=== PATIENT | female | born 1940 | race Caucasian/White ===

== ENCOUNTER 2020-06-18 18:52 | Observation (INO) | payer MEDICARE, BC ==
[~2020-06-18] VITALS: Ht 147.3 cm; Wt 69.1 kg
[~2020-06-18 18:52] MED LIST: BASAGLAR K100 UNIT/1 SQ; FREESTYLE PREC1 EAC5 MC; GLUCOPHAGE500 MG/TAB PO; GLUCOSE TEST ST1 DEV MC; LANCETS MC; OMNICEF 300MG300 MG PO; SYNTHROID0.075 MG/T PO
[2020-06-18 19:31] LABS: BASO % 0.4 % (0.0-2.0); EOS # 0.1 (0.0-0.7); EOS % 0.7 % (0-4.0); GRAN # 5.9 (1.4-6.5); GRAN % 72.2 % (42.2-75.2); HEMATOCRIT 40.7 % (37.0-47.0); HEMOGLOBIN 13.4 g/dl (12.5-16.0); LYMPH # 1.2 (1.2-3.4); LYMPH % 14.5 % (20.0-51.0); MEAN CELL VOLUME 93 fl (80.0-100.0); MEAN CORPUSCULAR HEMOGLOBIN 31 pg (27.0-31.0); MEAN CORPUSCULAR HGB CONC 33 g/dl (33.0-37.0); MEAN PLATELET VOLUME 9.8 fl (7.4-10.4); PLATELET COUNT 144 K/mm3 (130-400); RED BLOOD COUNT 4.36 M/mm3 (4.10-5.30); REDCELL DISTRIBUTION WIDTH-CV 14.5 % (11.5-14.5)
[2020-06-18 19:56] LABS: COLLECTION METHOD CATHETER
[2020-06-18 20:05] LABS: MUCOUS Present /lpf; PH 5 (5-8); SQUAMOUS EPITHELIAL 0-2 /hpf; URINE APPEARANCE Hazy; URINE BACTERIA Occasional /hpf; URINE BILIRUBIN Negative (NEGATIVE); URINE BLOOD 2+ (NEGATIVE); URINE COLOR Amber; URINE GLUCOSE 2+ (NEGATIVE); URINE KETONE 1+ (NEGATIVE); URINE LEUKOCYTE ESTERASE Negative (NEGATIVE); URINE NITRATE Negative (NEGATIVE); URINE PROTEIN(semi-quant) 1+ (NEGATIVE); URINE RBC 0-2 /hpf; URINE UROBILINOGEN >=4.0 mg/dL (NEGATIVE)
[2020-06-18 20:08] LABS: TROPONIN-I 0.018 ng/mL (0.000-0.035)
[2020-06-18 20:19] LABS: ALBUMIN 3.8 gm/dL (3.5-5.0); BILIRUBIN,TOTAL 2.3 mg/dL (0.0-1.0); C-REACTIVE PROTEIN 3.2 mg/dL (0.0-0.9); CALCIUM 9.3 mg/dL (8.4-10.2); CREATININE, serum 0.95 (0.52-1.25); POTASSIUM 4.4 mmol/L (3.4-5.0); TOTAL PROTEIN 7.3 gm/dL (6.4-8.2)
[2020-06-18] MEDS ORDERED: GLUCOPHAGE500 MG/TAB PO (21:39)
[2020-06-18] MEDS ORDERED: MULTI-VITAMIN W1 TA1 PO (21:40)
[2020-06-18] MEDS ORDERED: PRINIVIL5 MG PO (21:40)
[2020-06-18] MEDS ORDERED: NIZORAL CREAM15 GM TP (21:42)
[2020-06-18] MEDS ORDERED: LANTUS SOLOS100 U/ML SQ (21:42)
--- NOTE | 2020-06-18 22:13 | NUR ---
Pt arrives to room 327 from ED per cart. Is alert and oriented x4. Moved from cart to bed with 2 assist. Has IVF infusing to left hand without redness or swelling.
[2020-06-18 22:20] VITALS: BP 122/52; PULSE 89; TEMP 97.3
[2020-06-18] MEDS ORDERED: BASAGLAR K100 UNIT/1 SQ (23:02)
[2020-06-19] VITALS (7 sets, daily range): BP systolic 94–135; BP diastolic 41–55; PULSE 72–87; TEMP 97.2–98.8
--- NOTE | 2020-06-19 00:30 | NUR ---
Pt ate a turkey sandwich and applesauce without problem.
--- NOTE | 2020-06-19 05:00 | NUR ---
Incontinent of large soft BM and urine. Andria care provided and barrier cream applied. Encouraged to lay on her sides.
--- NOTE | 2020-06-19 07:10 | NUR ---
PT RESTING IN BED. DR. ANDERS IN TO SEE PT THIS AM. DRESSING TO LEFT KNEE CDI. PT EATING AND DRINKING WITHOUT N/V.
--- NOTE | 2020-06-19 07:13 | NUR ---
PT RESTING IN BED EATING BREAKFAST. PT'S SISTER CALLED AND UPDATED ON PT CONDITION.
[2020-06-19 07:26] LABS: BASO % 0.3 % (0.0-2.0); EOS # 0.2 (0.0-0.7); EOS % 2.5 % (0-4.0); GRAN # 4.9 (1.4-6.5); GRAN % 69.5 % (42.2-75.2); HEMOGLOBIN 11.8 g/dl (12.5-16.0); LYMPH # 1.2 (1.2-3.4); LYMPH % 17.1 % (20.0-51.0); MEAN CELL VOLUME 93 fl (80.0-100.0); MEAN CORPUSCULAR HEMOGLOBIN 31 pg (27.0-31.0); MEAN CORPUSCULAR HGB CONC 33 g/dl (33.0-37.0); MEAN PLATELET VOLUME 9.9 fl (7.4-10.4); MONO # 0.7 (0.1-0.6); MONO % 10.5 % (1.7-9.3); PLATELET COUNT 124 K/mm3 (130-400); RED BLOOD COUNT 3.83 M/mm3 (4.10-5.30); REDCELL DISTRIBUTION WIDTH-CV 14.6 % (11.5-14.5)
[2020-06-19 07:28] LABS: HEMATOCRIT 35.7 % (37.0-47.0)
[2020-06-19 07:33] LABS: CALCIUM 8.3 mg/dL (8.4-10.2); CREATININE, serum 0.71 (0.52-1.25); POTASSIUM 3.9 mmol/L (3.4-5.0)
--- NOTE | 2020-06-19 09:49 | NUR ---
PT A/O X3, PATIENT VISITED WITH DR. SINGH THIS AM. PT WAS DOWN FOR 9 DAYS AT HOME BEFORE FAMILY FOUND HER. AWAITNG PLACEMENT SCREENINGS.
--- NOTE | 2020-06-19 10:49 | NUR ---
Initial visit; Patient thanked Winding Rack Operator for taking time to listen to her and offer spiritual care, especially prayer.
--- NOTE | 2020-06-19 12:14 | NUR ---
PT UP TO BR WITH ASSIST X2 SLOW SHUFFELING GAIT. LOOSE STOOL PROVIDED PERICARE AND THEN RETURNED TO BED. PT'S SISTER HERE TO VISIT AND GREIGE GOODS EXAMINER IN ROOM TO ASSIST WITH DISCHARGE PLANNING. PT HAS MANY SCRAPES AND CONTUSIONS TO BACK AND LEGS AND ARMS FROM CRAWLING ON FLOOR FOR NINE DAYS.
--- NOTE | 2020-06-19 16:27 | NUR ---
Sound Assistant met with the patient and the patient's sister, Anna. The patient lives alone in [place]. The patient has a walker, cane and electric wheelchair, and two scooter. The patient's PCP is Dr. Scanlon and patient receives medications from [facility]. The patient picks up medications. The patient has DPOA-HC and it was turned in at admissions. It designates her sister, Anna. The patient had a fall and was left alone for 9 days with only two bottles of water near her. The patient was agreeable to sending referrals to [place] [facility], [facility], [facility], [place] [facility] and [facility]. The patient is obs and will be have to be private pay. She states she will pay if she has to but would like to discuss it with family. ARTURO contacted [facility], , and [facility] and their daily rates for private rooms are, $373, $298, and $260, respectively. SW informed the patient of these rates. [facility] has declined. ARTURO attempted to contact the patient's sister Anna with updates, left message.
--- NOTE | 2020-06-20 01:00 | NUR ---
Assisted to bathroom with walker and gait belt. Had already been incontinent of urine, depends changed and jony care given at this time. Applied barrier cream to back and jony area. Back to bed with slow steady gait. IVF infusing to left hand without redness or swelling.
[2020-06-20 03:26] VITALS: BP 112/45; PULSE 72; TEMP 98.1
--- NOTE | 2020-06-20 06:00 | NUR ---
ASSISTED TO BATHROOM WITH GAIT BELT, WALKER AND ONE ASSIST. SLOW STEADY GAIT. APPLIED BARRIER CREAM TO UPPER BACK AND COCCYX INJURY. PT INCONTINENT OF BLADDER AND VOIDS. BARRIER CREAM TO LOTTIE AREA AND NEW DEPENDS ON. BACK TO BED. IVF CONTINUE TO LEFT HAND, NO REDNESS OR SWELLING.
[2020-06-20 07:37] VITALS: BP 134/50; PULSE 75; TEMP 98.4
--- NOTE | 2020-06-20 08:00 | NUR ---
Patient in bed eating breakfast. Alert and oriented x3. Assessment complete. Denies pain at this time. Abrasions to elbows with mepilex in place, left hip ulcer, abrasion to left shoulder and mid back noted. deep tissue injury to sacrum. Multiple abrasions noted throughout. denies pain a this time. denies further neeeds at this time.
--- NOTE | 2020-06-20 09:22 | NUR ---
Bee Farmer attempted to contact the patient's sister, Anna to discuss the options for the patient, left message. SW attempted to contact the patient's brother, Yousif, left message. SW met with the patient and she states her siblings were discussing the possibility of returning home with a caregiver and [facility]. Laly from [facility] reports they are awaiting on Dr. Scanlon in order to make a decision. [facility] reports they are still reviewing the referral. Will continue to monitor.
--- NOTE | 2020-06-20 10:03 | NUR ---
Oil And Gas Specialist attempted to contact the patient's sister Anna, left message.
[2020-06-20 11:22] VITALS: BP 132/60; PULSE 84; TEMP 97.4
--- NOTE | 2020-06-20 11:52 | NUR ---
Family at bedside.
--- NOTE | 2020-06-20 12:11 | NUR ---
Patient sitting up in recliner, Denies pain or further needs at this time.
[2020-06-20] MEDS ORDERED: NOVLOG SQ (13:40)
[2020-06-20] MEDS ORDERED: LEVEMIR FLEX100 U/ML SQ (13:40)
[2020-06-20 13:48] VITALS: BP 132/60; PULSE 84; TEMP 97.4
--- NOTE | 2020-06-20 13:55 | NUR ---
The patient is to discharge today, 06/20 to [facility] for a skilled stay. The patient will be transported at 1430. The team, the patient and the patient's sister, Anna were in agreeance. SW faxed discharge orders. There are no additional needs at this time.
--- NOTE | 2020-06-20 14:30 | NUR ---
Report called to Merari STOKES at [facility]
--- NOTE | 2020-06-20 14:38 | NUR ---
Assisted patient up to restroom, incontinent of urine. Pericare provided. Stand by assist to transfer to wheelchair with walker, steady gait. Continues to deny pain. Patient transfered to [facility] by wheelchair.
== END 2020-06-20 14:38 ==
LOC: COL.ER 18:52 → JCC 21:13
PROVIDERS: Emergency Medicine; Nurse Practitioner Family; ADMIT Hospitalist
DX: R53.1 Weakness (principal); R53.81 Other malaise; L89.212 Pressure ulcer of right hip, stage 2; L89.156 Pressure-induced deep tissue damage of sacral region; N17.9 Acute kidney failure, unspecified; E86.0 Dehydration; E87.2 Acidosis; E11.8 Type 2 diabetes mellitus with unspecified complications; E03.9 Hypothyroidism, unspecified; Z20.828 Contact with and (suspected) exposure to other viral communicable diseases; S50.312A Abrasion of left elbow, initial encounter; S50.311A Abrasion of right elbow, initial encounter; S80.812A Abrasion, left lower leg, initial encounter; S80.811A Abrasion, right lower leg, initial encounter; M47.892 Other spondylosis, cervical region; W18.30XA Fall on same level, unspecified, initial encounter; W22.8XXA Striking against or struck by other objects, initial encounter; Z79.4 Long term (current) use of insulin; Y92.009 Unspecified place in unspecified non-institutional (private) residence as the place of occurrence of the external cause; Z79.899 Other long term (current) drug therapy
CPT/HCPCS: G0378; J1650; J1815; J7030

== ENCOUNTER 2020-12-24 10:29 | Emergency (ER) | payer MEDICARE, BC ==
[~2020-12-24] VITALS: Ht 144.8 cm; Wt 72.7 kg
[~2020-12-24 10:29] MED LIST changes: +LANTUS SOLOS100 U/ML SQ; +LEVEMIR FLEX100 U/ML SQ; +MULTI-VITAMIN W1 TA1 PO; +NIZORAL CREAM15 GM TP; +NOVLOG SQ; +PRINIVIL5 MG PO
[2020-12-24 10:43] VITALS: TEMP 97.6
[2020-12-24 12:07] VITALS: BP 164/71; PULSE 106
== END 2020-12-24 12:45 | disposition home or self-care (01) ==
LOC: COL.ER 10:29
DX: S01.01XA Laceration without foreign body of scalp, initial encounter (principal); E11.9 Type 2 diabetes mellitus without complications; I10 Essential (primary) hypertension; E03.9 Hypothyroidism, unspecified; Z79.4 Long term (current) use of insulin; Z79.890 Hormone replacement therapy; W19.XXXA Unspecified fall, initial encounter; Y92.009 Unspecified place in unspecified non-institutional (private) residence as the place of occurrence of the external cause

== ENCOUNTER 2021-03-26 15:48 | Observation (INO) | payer MEDICARE, BC ==
[~2021-03-26] VITALS: Ht 144.8 cm; Wt 74.0 kg
[2021-03-26] MEDS ORDERED: LASIX 40MG TABL40 MG PO (16:04)
[2021-03-26] MEDS ORDERED: KLOR-CON M2020 MEQ PO (16:04)
[2021-03-26] MEDS ORDERED: PROTONIX 40MG T40 MG PO (16:05)
[2021-03-26] MEDS ORDERED: LEVEMIR FLEX100 U/ML SQ (16:08)
[2021-03-26] MEDS ORDERED: NIZORAL SHAMPO120 M1 TP (16:08)
[2021-03-26] MEDS ORDERED: NYSTATIN POWDER30 GM TOP (16:09)
[2021-03-26] MEDS ORDERED: VITAMINC1000TA PO (16:10)
[2021-03-26] MEDS ORDERED: FERROUS GL325 MG/TAB PO (16:23)
--- NOTE | 2021-03-26 17:14 | NUR ---
PT ADMITTED TO ROOM 348, ASSESSMENTS COMPLETE, MED REC COMPLETE. DR. DAVENPORT CONTACTED FOR BOWEL PREP ORDERS AND SURGICAL ORDERS. COVID SCREEN COMPLETE WITH NEG RESULTS.
[2021-03-26 17:44] VITALS: BP 132/53; PULSE 79; TEMP 97.6
--- NOTE | 2021-03-26 18:29 | NUR ---
CONSENT OBTAINED AND PLACED ON CHART.
--- NOTE | 2021-03-26 19:30 | NUR ---
Patient is starting bowel prep at this time.
[2021-03-26 19:45] VITALS: BP 118/47; PULSE 78; TEMP 97.5
[2021-03-26 23:38] VITALS: BP 113/48; PULSE 76; TEMP 97.5
[2021-03-27] VITALS (8 sets, daily range): BP systolic 113–134; BP diastolic 46–55; PULSE 74–86; TEMP 97.5–98
--- NOTE | 2021-03-27 04:00 | NUR ---
Patient finished bowel prep. Has had several loose stools.
--- NOTE | 2021-03-27 09:43 | NUR ---
PT TO SURGERY @909.
--- NOTE | 2021-03-27 09:46 | NUR ---
PT SUCCESSFUL IN BOWEL PREP. PT TO SURGERY PER ORDERS. PT'S SISTER AT BEDSIDE. VERBAL CONSENT OBTAINED.
--- NOTE | 2021-03-27 10:34 | NUR ---
PT TO ROOM @1005 WITH REPORT FROM [facility] STOKES ENDO. PT IS A/O X3, LUNGS CTA, BOWEL SOUNDS HYPO. 2 + EDEMA BLE. IN TO SEE PT AND COORDINATE FUTHER TX.PT TO HAVE CT AND THEN POSSIBLE DC TO FOLLOW UP OUTPATIENT WITH GENERAL SURGERY.
[2021-03-27 13:15] LABS: CREATININE, serum 0.54 (0.52-1.25)
--- NOTE | 2021-03-27 13:27 | NUR ---
Initial visit; Patient sleeping, Intake Specialist let family member know of the availability of Spiritual Care.
--- NOTE | 2021-03-27 15:57 | NUR ---
ARTURO met with the patient and her sister, Bella (ph#[phone]), to discuss discharge plan. The patient lives alone in [place]. Bella lives in [place]. The patient's brother, Dean, lives in [place]. The patient reports independence with ADLs and has several walkers and an electric wheelchair. She states that she needs to replace the battery in the wheelchair. The patient's PCP is Dr. Erin Scanlon and she receives her medications from [facility] in [facility]. She reports no difficulties obtaining her meds. Bella provided ARTURO with a copy of the patient's DPOA-HC and General DPOA. ARTURO placed the copies in the patient's chart. The patient's DPOA-HC is Bella. The patient plans to return home upon discharge. Bella reports that she plans to stay with the patient for awhile. ARTURO discussed home health services and it's benefits. The patient was not interested in home health at this time. No additional needs at this time.
--- NOTE | 2021-03-27 16:12 | NUR ---
DISCHARGE INSTRUCTIONS REVIEWED WITH PATIENT AND FAMILY. QUESTIONS SOLICITED AND ANSWERED. PT LEFT WITH STAFF PER WHEEL CHAIR.
== END 2021-03-27 16:23 | disposition home or self-care (01) ==
LOC: SDCO 15:48 → SURG 16:27 → SDCO 03-27 09:00 → SURG 03-27 16:23
PROVIDERS: ADMIT Internal Medicine Gastroenterology
DX: K29.70 Gastritis, unspecified, without bleeding (principal); D50.9 Iron deficiency anemia, unspecified; R19.5 Other fecal abnormalities; E11.649 Type 2 diabetes mellitus with hypoglycemia without coma; E03.9 Hypothyroidism, unspecified; I11.9 Hypertensive heart disease without heart failure; I34.0 Nonrheumatic mitral (valve) insufficiency; R60.0 Localized edema; K44.9 Diaphragmatic hernia without obstruction or gangrene; Z20.822 Contact with and (suspected) exposure to COVID-19; Z79.899 Other long term (current) drug therapy; Z79.890 Hormone replacement therapy; Z79.4 Long term (current) use of insulin
CPT/HCPCS: G0378; J1815; J2704; J7030; Q9967

== ENCOUNTER 2021-04-10 15:16 | Inpatient (IN) | payer MEDICARE, BC ==
[~2021-04-10] VITALS: Ht 144.8 cm; Wt 74.5 kg
[~2021-04-10 15:16] MED LIST changes: +FERROUS GL325 MG/TAB PO; +KLOR-CON M2020 MEQ PO; +LASIX 40MG TABL40 MG PO; +NIZORAL SHAMPO120 M1 TP; +NYSTATIN POWDER30 GM TOP; +PROTONIX 40MG T40 MG PO; +VITAMINC1000TA PO
--- NOTE | 2021-04-28 13:58 | NUR ---
arrived on unit per WC from admissions
[2021-04-28 14:00] VITALS: BP 111/43; PULSE 74; TEMP 98.6
--- NOTE | 2021-04-28 14:05 | NUR ---
Dr Ascencio notified of patinet's arrival and need for orders
--- NOTE | 2021-04-28 14:33 | NUR ---
assessment completed, she is able to answer all questions but is very slow to answer, has bilateral lower leg edema that sister states she does have some trouble with, orders received from Dr Ascencio's office,
--- NOTE | 2021-04-28 15:30 | NUR ---
resting in bed, IV started right forearm, tolerated well
[2021-04-28 16:15] VITALS: BP 136/53; PULSE 72; TEMP 98.1
[2021-04-28] MEDS ORDERED: GLUCOPHAGE XR500 M1 PO (16:58)
--- NOTE | 2021-04-28 17:45 | NUR ---
in bed and miralax prep started, will encourage her to drink 8 ounces every 15 minutes
--- NOTE | 2021-04-28 18:25 | NUR ---
assisted up to bathroom with 1 assist and voided qs
[2021-04-28 18:53] VITALS: BP 120/50; PULSE 75; TEMP 97.4
--- NOTE | 2021-04-28 21:00 | NUR ---
PATIENT IS IN THE ROOM ON BOWEL PREP.NEEDS ASSISTANCE WITH TAKING THE BOWEL PREP.TAKES SMALL SIPS.NO OTHER NEEDS AT THIS TIME.
[2021-04-29] VITALS (13 sets, daily range): BP systolic 100–171; BP diastolic 37–76; PULSE 74–96; TEMP 97–98.4
--- NOTE | 2021-04-29 01:25 | NUR ---
PATIENT ASSISTED TO THE BEDSIDE COMMODE.HAS NOT HAD A BM SINCE THE BEGINNING OF THE SHIFT.SHE IS TWO ASSIST STAND AND PIVOT TO THE BEDSIDE COMMODE
--- NOTE | 2021-04-29 06:23 | NUR ---
PATIENT HAD 3 BOWEL MOVEMENTS IN A BEDPAN WAS HARD AND GREEN IN COLOR.IV ACCESS INFILTRATED TRIED STARTING A NEW ONE WITH NO SUCCESS SENIOR CONTROLS ENGINEER INFORMED TRIED WITH NO SUCESS.PATIENT DECLINES TO SIGN CONSENT SAYS HER SISTER IS COMING TO DIGN IT.FOR OR TODAY
--- NOTE | 2021-04-29 09:15 | NUR ---
NGT placed to right nare per Drs order. Immediate return of 500ml brown liquid. Miralax bowel prep per NGT.
--- NOTE | 2021-04-29 09:30 | NUR ---
Patient alert and oriented, answers questions appropriately. See assessment. Abdomen distended, firm. Bowel sounds hypoactive x4 quads. +Flatus. +Bowel movement. NGT in right nare to LIS, large amounts of brown liquid. Patient c/o nausea, despite NGT in place. No other c/o at this time.
[2021-04-29 11:13] LABS: HEMOGLOBIN 7.8 g/dl (12.5-16.0); MEAN CELL VOLUME 79 fl (80.0-100.0); MEAN CORPUSCULAR HEMOGLOBIN 24 pg (27.0-31.0); MEAN CORPUSCULAR HGB CONC 30 g/dl (33.0-37.0); MEAN PLATELET VOLUME 10.7 fl (7.4-10.4); PLATELET COUNT 142 K/mm3 (130-400); RED BLOOD COUNT 3.31 M/mm3 (4.10-5.30); REDCELL DISTRIBUTION WIDTH-CV 16.3 % (11.5-14.5)
[2021-04-29 11:20] LABS: INR 1.2 (0.8-3.0); PROTHROMBIN TIME 13.2 SECONDS (9.7-12.8)
[2021-04-29 11:23] LABS: ALBUMIN 3.2 gm/dL (3.5-5.0); BILIRUBIN,TOTAL 0.9 mg/dL (0.0-1.0); CALCIUM 7.8 mg/dL (8.4-10.2); CREATININE, serum 1.38 (0.52-1.25); POTASSIUM 4.3 mmol/L (3.4-5.0); TOTAL PROTEIN 6.5 gm/dL (6.4-8.2)
--- NOTE | 2021-04-29 11:40 | NUR ---
First visit from the city attorney. No needs right now.
--- NOTE | 2021-04-29 14:31 | NUR ---
Patient to surgery at this time. Blood transfusing, assume care of blood to post op staff.
--- NOTE | 2021-04-29 16:51 | NUR ---
The patient is down in a procedure. ARTURO met with the patient's sister, Bella Reed (ph#[phone]), and brother, Dean, to discuss discharge plan. The patient lives alone in [place]. Dean lives in [place] and Bella lives in [place]. Bella reports that the patient has been independent with ADLs and has canes, a walker, and an electric wheelchair. She does not have any home health services. The patient's PCP is Dr. Erin Scanlon and she receives her medications from [facility] in [facility]. The patient's DPOA-HC is in EMR and it designates Bella. Bella and Dean report that the patient has had a decline at home and they would like to the patient to go to a SNF upon discharge. They are unsure if the patient will be agreeable though. They state that the patient has falls at home, but does not use her life alert. The patient's siblings are open for ARTURO to send referrals to the local facilities. ARTURO contacted and faxed a referral to [facility], [facility], and [facility]. Awaiting screens. ARTURO to follow up with the patient tomorrow.
--- NOTE | 2021-04-29 18:41 | NUR ---
Patient returns from surgery at 1840. Patient responds to painful stimuli, pupils pinpoint and reactive to light. NGT in place to right nare to LIS. Jimenez catheter in place and draining clear ciara urine. Lap sites x2 to abdomen and midline incision with edges well approximated, no redness or drainage noted. No s/s pain or discomfort..
--- NOTE | 2021-04-29 20:15 | NUR ---
Pt. laying in bed with eyes closed, respirations equal and unlabored. Pt. arouses to verbal stimuli. Pt is A&OX3, assessment complete. PICC to rt. upper arm patent, IV fluids infusing per orders. Pt. denies pain or other needs, call light within reach.
[2021-04-30] VITALS: BP 110/46; PULSE 88; TEMP 97.8
[2021-04-30 04:00] VITALS: BP 113/44; PULSE 95; TEMP 98.1
[2021-04-30 07:06] LABS: BASO % 0.1 % (0.0-2.0); GRAN # 13.4 (1.4-6.5); GRAN % 88.5 % (42.2-75.2); LYMPH # 0.8 (1.2-3.4); LYMPH % 5.2 % (20.0-51.0); MEAN CELL VOLUME 79 fl (80.0-100.0); MEAN CORPUSCULAR HGB CONC 31 g/dl (33.0-37.0); MEAN PLATELET VOLUME 10.7 fl (7.4-10.4); MONO # 0.9 (0.1-0.6); MONO % 5.9 % (1.7-9.3); PLATELET COUNT 151 K/mm3 (130-400); RED BLOOD COUNT 3.44 M/mm3 (4.10-5.30); REDCELL DISTRIBUTION WIDTH-CV 16.2 % (11.5-14.5)
[2021-04-30 07:12] LABS: HEMATOCRIT 27.3 % (37.0-47.0); HEMOGLOBIN 8.5 g/dl (12.5-16.0); MEAN CORPUSCULAR HEMOGLOBIN 25 pg (27.0-31.0)
[2021-04-30 07:18] LABS: CALCIUM 7.6 mg/dL (8.4-10.2); CREATININE, serum 0.94 (0.52-1.25); MAGNESIUM 1.5 mg/dL (1.6-2.3); POTASSIUM 4.5 mmol/L (3.4-5.0)
[2021-04-30 07:33] VITALS: BP 114/45; PULSE 100; TEMP 97.7
--- NOTE | 2021-04-30 08:35 | NUR ---
Jaclyn Hospitalist SHERRIE notified of consult.
--- NOTE | 2021-04-30 11:10 | NUR ---
Patient alert and oriented, answers questions appropriately. See assessment. Abdomen soft, tender, non distended. Bowel sounds hypoactive x4 quads. No flatus. Midline and lap sites to abdomen with edges well approximated, no redness or drainage noted. Jimenez catheter in place, patent, draining clear yellow urine. SCDs in place. Post op exercises reviewed with patient. PICC line in place to RUE, flushed with NS, blood return noted. Jimenez cares completed. Post op exercises reviewed with patient. No c/o at this time.
[2021-04-30 11:39] VITALS: BP 112/48; PULSE 96; TEMP 98.6
--- NOTE | 2021-04-30 15:42 | NUR ---
Laly, at [facility], reports that they would want to see updates from after the surgery and inquired about any cancer treatment. The patient's sister, Bella, informed ARTURO that the patient is not receiving any cancer treatment at this time. SW informed Laly of this. PT worked with the patient and recommend SNF. They noted that the patient needed maximum assist. SW met with the patient, her brother (Dean), and another family member to discuss their recommendation. The patient states that she would need to speak to her sister, Sergio. SW contacted the patient's sister, Bella, and reviewed the above. Bella is in agreement to SNF upon discharge. ARTURO contacted and faxed updated to [facility], [facility], and [facility].
[2021-04-30 15:44] VITALS: BP 106/41; PULSE 89; TEMP 98.5
--- NOTE | 2021-04-30 18:48 | NUR ---
Discharge instructions reviewed with patient, verbalized understanding. Discharged via wheelchair to auto/home with spouse at 1845.
--- NOTE | 2021-04-30 19:27 | NUR ---
REPORT RECEIVES FROM KIKE LEY. PATIENT RESTING IN BED SLEEPING AROUSABLE. DENIES PAIN AT THIS TIME. RESPIRATIION UNLABED AND EVEN. MID ABDOMINAL DRESSING CLEAN DRY AND INTACT, TWO LAPS SITE COVER WITH BANDAGE. IVF LR@ 75ML/HR INFUSING VIA TRAY PICC. SEYMOUR CATHER TO GRAVITY DRAINING CLEAR YELLOW URINE. PATIENT TOLERATES CLEAR LIQUIDS DIET. WILL CONTINUE TO MONITOR.
[2021-04-30 20:05] VITALS: BP 97/40; PULSE 84; TEMP 98
[2021-05-01] VITALS (7 sets, daily range): BP systolic 94–122; BP diastolic 33–60; PULSE 57–90; TEMP 97.3–98.3
[2021-05-01 07:00] LABS: BASO % 0.2 % (0.0-2.0); EOS # 0.1 (0.0-0.7); EOS % 0.8 % (0-4.0); GRAN # 8.6 (1.4-6.5); GRAN % 71.5 % (42.2-75.2); LYMPH # 1.8 (1.2-3.4); LYMPH % 15.1 % (20.0-51.0); MEAN CELL VOLUME 81 fl (80.0-100.0); MEAN CORPUSCULAR HGB CONC 30 g/dl (33.0-37.0); MEAN PLATELET VOLUME 10.4 fl (7.4-10.4); MONO # 1.5 (0.1-0.6); MONO % 12.1 % (1.7-9.3); PLATELET COUNT 141 K/mm3 (130-400); RED BLOOD COUNT 2.93 M/mm3 (4.10-5.30); REDCELL DISTRIBUTION WIDTH-CV 16.6 % (11.5-14.5)
[2021-05-01 07:09] LABS: CALCIUM 7.7 mg/dL (8.4-10.2); CREATININE, serum 1.44 (0.52-1.25); POTASSIUM 4.2 mmol/L (3.4-5.0)
[2021-05-01 07:13] LABS: HEMATOCRIT 23.7 % (37.0-47.0); HEMOGLOBIN 7.2 g/dl (12.5-16.0); MEAN CORPUSCULAR HEMOGLOBIN 25 pg (27.0-31.0)
--- NOTE | 2021-05-01 10:29 | NUR ---
Initial visit; Patien with Physical Therapy, Career Development Coordinator left card informing patient of the availability of spiritual care at our hospital.
--- NOTE | 2021-05-01 11:19 | NUR ---
Patient alert and oriented, answers questions appropriately. See assessment. Abdomen soft, tender, non distended. Bowel sounds active x4 quads. +Flatus. +Bowel movement. Midline and lap sites to abdomen with edges well approximated, no redness or drainage noted. Jimenez catheter in place, patent and draining clear yellow urine. Dbl lumen PICC in place to RUE, flushes well, blood return noted. Post op exercises reviewed with patient. No c/o at this time.
--- NOTE | 2021-05-01 15:59 | NUR ---
ARTURO staffed with the hospitalist. The patient is to be here through the weekend. ARTURO contacted and faxed updates to [facility], [facility], and [facility]. ARTURO updated the patient's sister, Bella. Bella reports that if SW needs anything over the weekend to call her cell phone at [phone].
--- NOTE | 2021-05-01 17:11 | NUR ---
Jimenez catheter removed per Drs order.
--- NOTE | 2021-05-01 21:00 | NUR ---
Pt. laying in bed at this time. Pt. is A&OX3, but forgettful at times. PICC to rt. upper arm patent, IV fluids infusing per orders. Abd. incisions CDI. Pt. very teary eyed this evening. Pt. voices she was upset because her sister did not come to see her today. This nurse called sister for the pt. Pt. able to talk to sister this evening. This nurse also talked to sister. Sister voices that she was planning on come tuesday because a brother is planning on visiting tomorrow. Pt.'s sister also reported that the pt. may not have heard her on the phone. This nurse reinterated to the pt. what her sister said. Pt. also reported pain to lt. shoulder and arm. Gave pain meds per orders. Pt. denies further needs.
[2021-05-02] VITALS (7 sets, daily range): BP systolic 102–127; BP diastolic 42–57; PULSE 85–91; TEMP 97.5–98.4
[2021-05-02 07:28] LABS: BASO % 0.2 % (0.0-2.0); EOS # 0.2 (0.0-0.7); EOS % 1.5 % (0-4.0); GRAN % 76.8 % (42.2-75.2); LYMPH # 1.6 (1.2-3.4); LYMPH % 12.5 % (20.0-51.0); MEAN CELL VOLUME 82 fl (80.0-100.0); MEAN CORPUSCULAR HGB CONC 30 g/dl (33.0-37.0); MEAN PLATELET VOLUME 10.1 fl (7.4-10.4); MONO # 1.1 (0.1-0.6); MONO % 8.5 % (1.7-9.3); PLATELET COUNT 169 K/mm3 (130-400); RED BLOOD COUNT 3.21 M/mm3 (4.10-5.30); REDCELL DISTRIBUTION WIDTH-CV 16.8 % (11.5-14.5)
[2021-05-02 07:32] LABS: CALCIUM 7.7 mg/dL (8.4-10.2); CREATININE, serum 1.22 (0.52-1.25); POTASSIUM 4.2 mmol/L (3.4-5.0)
[2021-05-02 07:35] LABS: HEMATOCRIT 26.4 % (37.0-47.0); MEAN CORPUSCULAR HEMOGLOBIN 25 pg (27.0-31.0)
--- NOTE | 2021-05-02 12:00 | NUR ---
Patient is having some nausea this morning. She vomited after breakfast. Zofran given. She was also having pain, roxicodone given. Her brother arrived at about 0845, her breakfast arrived about the same time. He started to assist her with eating. He than came out to the desk and yelled about her breakfast sitting there for hours. Explained we ordered after 0800 and that it usually takes 40 minutes to get food from the kitchen. He continued to be upset. Another nurse stated the food arrived after he got to the room. Discussed taking over feeding the patient for him but he stated she was tired and he was going to wait to feed her more. When she got sick he stated she got sick from eating old food that sat out too long and was upset because I would not grab the bucket with the vomit from him without gloves. He than stated the weekend nurses are never as good as the regular nurses and he knows were not helping her. Explained that we ordered her food for her and helped her get set up to eat it. Patient stated that her food was not sitting there for that long. Explained to the brother that the nausea is likely a result from the surgery. Explained to patient that she should stop eating breakfast becuase of the N/V. She stated she understood. Patients brother was also upset because patient had an incontinent episode. Explained we checked her before ordering breakfast but will clean her up now. He kept saying she was probably this way all night, assured him that she was not. Patient told him she had got up to the toilet around 5am. Patient was incontinent of bowel and bladder. No reddness to bottom. Zofran given to patient for nausea, explained to eat light foods and to avoid anything heavy until she starts passing more gas because her abdomen is tight. Dr Ascencio spoke with patient and her brother about the surgery and the plan. No other changes at this time. Call light within reach.
--- NOTE | 2021-05-02 19:00 | NUR ---
Patients is doing better this evening. Held solids for supper. Zofran given this afternoon. She did not vomit but stated feeling nauseated. Minimal complaints of pain. She did not take much food intoday and did not want the pain medications and tylenol. She had one more small bowel movement this afternoon. Her brother stayed most the day. He would get upset at times. He got the patient upset because he told her and the other visitor at 1600 the Surgeon still has not seen her today. Explained to other visitor that he did and so did Dr Reyna. Patient denies pain this evening. She ate jello and and broth for supper. X-ray did the KUB that was ordered at noon around 1800, they were notified of the order this afternoon. Not sure what happened but they said they knew it was ordered at noon. Zofran given again this afternoon. No other changes at this time. Call light within reach.
--- NOTE | 2021-05-02 20:00 | NUR ---
Pt. sitting up in bed. Pt. is A&OX3, assessment complete. PICC to rt. upper arm patent. Pt. denies pain at this time. Call light within reach.
[2021-05-03] VITALS (7 sets, daily range): BP systolic 96–119; BP diastolic 38–52; PULSE 66–94; TEMP 97.1–98.6
[2021-05-03 05:59] LABS: BASO % 0.2 % (0.0-2.0); EOS # 0.3 (0.0-0.7); EOS % 3.4 % (0-4.0); GRAN # 6.4 (1.4-6.5); GRAN % 73.2 % (42.2-75.2); LYMPH # 0.9 (1.2-3.4); LYMPH % 10.7 % (20.0-51.0); MEAN CELL VOLUME 84 fl (80.0-100.0); MEAN CORPUSCULAR HGB CONC 30 g/dl (33.0-37.0); MEAN PLATELET VOLUME 10.5 fl (7.4-10.4); MONO # 1.1 (0.1-0.6); PLATELET COUNT 152 K/mm3 (130-400); RED BLOOD COUNT 2.94 M/mm3 (4.10-5.30); REDCELL DISTRIBUTION WIDTH-CV 16.9 % (11.5-14.5)
[2021-05-03 06:04] LABS: HEMATOCRIT 24.7 % (37.0-47.0); HEMOGLOBIN 7.4 g/dl (12.5-16.0); MEAN CORPUSCULAR HEMOGLOBIN 25 pg (27.0-31.0)
[2021-05-03 06:18] LABS: CALCIUM 7.4 mg/dL (8.4-10.2); CREATININE, serum 1.04 (0.52-1.25)
--- NOTE | 2021-05-03 14:19 | NUR ---
Sw faxed updates to [facility] and tried to call DPOA, but no one answered.
--- NOTE | 2021-05-03 18:00 | NUR ---
Patient had several loose/liquid bowel movements. Minimal complaints of pain. She had some nausea this afternoon, zofran given. PT attempted to get her up to the BSC but she would not take any steps and just stood at the bedside. She would not transfer to the commode. Discussed eating smaller meals that are not as harsh on her stomach. She continues to eat big meals. Also enocuraged her to stop drinking mil but she stated thats her favorite. No other changes at this time. Call light within reach.
--- NOTE | 2021-05-03 19:30 | NUR ---
Pt. laying in bed at this time. Pt. is A&OX3, assessment complete. PICC to rt. upper arm patent. IV fluids started per orders at this time for low BP's. Pt. reports pain to abd. at a 5 on pain scale, gave Tylenol per orders. Pt. had an incontinent BM. Pericare provided. Pt. repositioned for comfort. Pt. denies further needs, call light within reach.
[2021-05-04] VITALS (10 sets, daily range): BP systolic 100–153; BP diastolic 45–60; PULSE 70–85; TEMP 98–98.7
--- NOTE | 2021-05-04 08:20 | NUR ---
Mayo, at [facility], reports that they have declined the patient.
--- NOTE | 2021-05-04 08:43 | NUR ---
Patient complaining of pain to abdomen and hip 5/10 medications given per orders. Assisted patient with breakfast. Midline incision and lap sites with compa intact. PICC line to TRAY without complications. Repositioned patient at this time. Denies further needs at this time. Family at bedside.
--- NOTE | 2021-05-04 10:07 | NUR ---
Contacted Susan BALDERAS, patient complaining of hip pain, states old injury. No relief with first dose of oxycodone additional dose given per orders. No further needs at this time.
[2021-05-04 11:17] LABS: BASO % 0.4 % (0.0-2.0); EOS # 0.3 (0.0-0.7); EOS % 3.5 % (0-4.0); GRAN % 70.7 % (42.2-75.2); LYMPH % 11.8 % (20.0-51.0); MEAN CELL VOLUME 83 fl (80.0-100.0); MEAN CORPUSCULAR HGB CONC 30 g/dl (33.0-37.0); MONO # 1.1 (0.1-0.6); MONO % 13.2 % (1.7-9.3); PLATELET COUNT 112 K/mm3 (130-400); RED BLOOD COUNT 2.77 M/mm3 (4.10-5.30); REDCELL DISTRIBUTION WIDTH-CV 17.4 % (11.5-14.5)
[2021-05-04 11:19] LABS: HEMATOCRIT 22.9 % (37.0-47.0); HEMOGLOBIN 6.9 g/dl (12.5-16.0); MEAN CORPUSCULAR HEMOGLOBIN 25 pg (27.0-31.0)
[2021-05-04 11:25] LABS: CALCIUM 7.3 mg/dL (8.4-10.2); CREATININE, serum 0.94 (0.52-1.25); POTASSIUM 4.8 mmol/L (3.4-5.0)
--- NOTE | 2021-05-04 11:25 | NUR ---
Contacted Denisha about B
[2021-05-04 13:33] LABS: IRON,SERUM 14 ug/dL (35-150)
[2021-05-04 13:43] LABS: TOTAL IRON BINDING CAPACITY 318 ug/dL (265-497)
--- NOTE | 2021-05-04 13:49 | NUR ---
The patient's hemoglobin was low today and she is to receive a unit of blood. Possible d/c tomorrow. SW notified and faxed updates to [facility] and [facility]. Laly, at [facility], reports that they will want to see how the patient's hemoglobin is doing tomorrow, but otherwise they are looking good to accept. Henry, at [facility], reports that they will get an answer to SW today. SW met with the patient and her [id number] and provided and update. The patient's [id number] reports it would be best to just give her sister, Bella, an update. SW contacted and updated the patient's sister, Bella (ph#[phone]). Bella is in agreement to the plan.
--- NOTE | 2021-05-04 16:10 | NUR ---
Henry, at [facility], reports that they are able to accept the patient for a skilled stay.
--- NOTE | 2021-05-04 18:55 | NUR ---
Patient doing well throughout the day, repositioned through the day. Family at bedside through the day. Fluids continue infusing per orders. Pericare provided. Patient had large BM this afternoon. Denies further needs at this time. Will report off to hand stitcher.
[2021-05-04 19:54] LABS: HEMATOCRIT 28.2 % (37.0-47.0); HEMOGLOBIN 8.6 g/dl (12.5-16.0)
--- NOTE | 2021-05-04 21:56 | NUR ---
PT TAKES HS MEDS INCLUDING OXYCODONE 5MG PO FOR PAIN TO ABD. NOTED FLORY TO MIDLINE INCISION AND 2 LAP SITES. HAS BEEN INCONTINENT OF URINE, LOTTIE CARES GIVEN. CAPPED FLUIDS TO RIGHT PICC PT IS TAKING ORAL WELL.
[2021-05-04 23:14] LABS: FOLATE (FOLIC ACID) 6.5 ng/mL (2.0-20.0)
[2021-05-05 00:37] VITALS: BP 155/53; PULSE 88; TEMP 98.3
[2021-05-05 03:52] VITALS: BP 141/49; BP 141/493; PULSE 83; TEMP 98.2
--- NOTE | 2021-05-05 04:00 | NUR ---
PT RESTING QUIETLY AT THIS TIME.
[2021-05-05 07:06] LABS: MEAN CELL VOLUME 82 fl (80.0-100.0); MEAN CORPUSCULAR HGB CONC 31 g/dl (33.0-37.0); MEAN PLATELET VOLUME 9.4 fl (7.4-10.4); PLATELET COUNT 105 K/mm3 (130-400); RED BLOOD COUNT 3.43 M/mm3 (4.10-5.30); REDCELL DISTRIBUTION WIDTH-CV 17.2 % (11.5-14.5)
[2021-05-05 07:11] LABS: HEMATOCRIT 28.1 % (37.0-47.0); HEMOGLOBIN 8.8 g/dl (12.5-16.0); MEAN CORPUSCULAR HEMOGLOBIN 26 pg (27.0-31.0)
[2021-05-05 07:24] LABS: CALCIUM 7.3 mg/dL (8.4-10.2); CREATININE, serum 0.74 (0.52-1.25); POTASSIUM 4.7 mmol/L (3.4-5.0)
--- NOTE | 2021-05-05 07:44 | NUR ---
Patient up to recliner with x2 assist and walker. Denies further needs at this time.
--- NOTE | 2021-05-05 08:04 | NUR ---
Patient sitting up inrecliner, assisted with breakfast. Patient alert and oriented x 3. Assessment complete. States she feels alot better than she did yesterday. Blister noted to right hip. PICC line to TRAY without complications. Patient denies needs at this time.
[2021-05-05 08:10] VITALS: BP 147/63; PULSE 91; TEMP 99.4
[2021-05-05] MEDS ORDERED: NOVLOG SQ (09:22)
--- NOTE | 2021-05-05 11:35 | NUR ---
The patient is ready to d/c today. ARTURO followed up with the patient to update on referrals and follow up on preference. The patient reports that she would prefer [facility]. ARTURO notified and faxed updates to Laly at [facility]. ARTURO contacted and updated the patient's sister, Bella. Bella is supportive of the patient's decision. ARTURO read the IM form outloud to Bella. Bella verbalized understanding and gave SW approval to sign the form on her behalf. ARTURO placed a copy in the patient's room. Laly reports that they are able to accept the patient. ARTURO updated Henry at [facility]. The patient is to discharge today, 05/05, to [facility] for a skilled stay. Transportation was scheduled at 1330, via [facility]. ARTURO informed the patient, her sister (Bella), and RN of the time. They were all agreeable to the time. No additional needs at this time.
[2021-05-05 12:08] VITALS: BP 149/58; PULSE 81; TEMP 98.8
--- NOTE | 2021-05-05 13:58 | NUR ---
Report called to Beth babcock RN
== END 2021-05-05 14:00 | DRG 330 ==
LOC: SURG 04-28 13:47
PROVIDERS: Family Medicine; Physician Assistant; Student in an Organized Health Care Education/Training Program; ADMIT Surgery
PROC: 02HV33Z Insertion of Infusion Device into Superior Vena Cava, Percutaneous Approach (ICD-10-PCS; 2021-04-29)
PROC: 0DTL0ZZ Resection of Transverse Colon, Open Approach (ICD-10-PCS; principal; 2021-04-29 12:30)
PROC: 0DJD4ZZ Inspection of Lower Intestinal Tract, Percutaneous Endoscopic Approach (ICD-10-PCS; 2021-04-29 12:30)
DX: C18.4 Malignant neoplasm of transverse colon (principal); N17.9 Acute kidney failure, unspecified; E87.1 Hypo-osmolality and hyponatremia; K74.60 Unspecified cirrhosis of liver; Z20.828 Contact with and (suspected) exposure to other viral communicable diseases; E03.9 Hypothyroidism, unspecified; N18.30 Chronic kidney disease, stage 3 unspecified; D69.6 Thrombocytopenia, unspecified; E11.22 Type 2 diabetes mellitus with diabetic chronic kidney disease; E11.40 Type 2 diabetes mellitus with diabetic neuropathy, unspecified; D50.9 Iron deficiency anemia, unspecified; E66.9 Obesity, unspecified; Z68.32 Body mass index [BMI] 32.0-32.9, adult; R53.81 Other malaise; K74.5 Biliary cirrhosis, unspecified; E83.42 Hypomagnesemia; E11.65 Type 2 diabetes mellitus with hyperglycemia; L30.4 Erythema intertrigo; Z53.31 Laparoscopic surgical procedure converted to open procedure; Z79.84 Long term (current) use of oral hypoglycemic drugs
CPT/HCPCS: 99222; 99232-AI; 99233-AI; A4314; C1751; C1892; J0690; J1170; J1650; J1756; J1815; J2250; J2405; J2704; J2795; J3010; J3475; J7030; J7120; P9016

== ENCOUNTER 2021-05-11 18:27 | Inpatient (IN) | payer MEDICARE, BC ==
[~2021-05-11] VITALS: Ht 152.4 cm; Wt 84.9 kg
[~2021-05-11 18:27] MED LIST changes: +GLUCOPHAGE XR500 M1 PO
[2021-05-11 19:24] LABS: COLLECTION METHOD CATHETER
[2021-05-11 19:40] LABS: BASO % 0.3 % (0.0-2.0); EOS # 0.1 (0.0-0.7); EOS % 1.1 % (0-4.0); GRAN # 6.1 (1.4-6.5); GRAN % 86.8 % (42.2-75.2); HEMOGLOBIN 10.7 g/dl (12.5-16.0); LYMPH # 0.7 (1.2-3.4); LYMPH % 9.2 % (20.0-51.0); MEAN CELL VOLUME 88 fl (80.0-100.0); MEAN CORPUSCULAR HEMOGLOBIN 27 pg (27.0-31.0); MEAN CORPUSCULAR HGB CONC 30 g/dl (33.0-37.0); MEAN PLATELET VOLUME 9.5 fl (7.4-10.4); MONO # 0.2 (0.1-0.6); MONO % 2.3 % (1.7-9.3); PLATELET COUNT 247 K/mm3 (130-400); RED BLOOD COUNT 4.02 M/mm3 (4.10-5.30)
[2021-05-11 19:42] LABS: BUDDING YEAST Present /hpf; MUCOUS Present /lpf; PH 5 (5-8); URINE APPEARANCE Turbid; URINE BACTERIA Occasional /hpf; URINE BILIRUBIN Negative (NEGATIVE); URINE BLOOD Negative (NEGATIVE); URINE GLUCOSE Negative (NEGATIVE); URINE KETONE Negative (NEGATIVE); URINE LEUKOCYTE ESTERASE 3+ (NEGATIVE); URINE NITRATE Negative (NEGATIVE); URINE PROTEIN(semi-quant) 1+ (NEGATIVE); URINE RBC >50 /hpf; URINE UROBILINOGEN Negative (NEGATIVE)
[2021-05-11 19:43] LABS: URINE COLOR Yellow
[2021-05-11 19:45] LABS: HEMATOCRIT 35.5 % (37.0-47.0)
[2021-05-11 20:03] LABS: ALBUMIN 2.8 gm/dL (3.5-5.0); BILIRUBIN,TOTAL 0.6 mg/dL (0.0-1.0); CALCIUM 8.9 mg/dL (8.4-10.2); CREATININE, serum 0.92 (0.52-1.25); POTASSIUM 5.4 mmol/L (3.4-5.0); TOTAL PROTEIN 6.1 gm/dL (6.4-8.2)
[2021-05-11 23:28] VITALS: BP 98/48; PULSE 98; TEMP 97.4
--- NOTE | 2021-05-11 23:54 | NUR ---
PATIENT TO UNIT FROM ER. REPORT RECIEVED FROM MANJIT SANCHEZ. PATIENT ALERT MOANING, SPEECH SLURRED. RESPIRATION UNLABORED. ABDOMINAL INCISION WITH FLORY PROGRAM PROJECT MANAGER INTACT, NO REDNESS OR DRAINAGE NOTED. LOTTIE AREA REDDENED, HOSPITOLIST BONNIE MADE AWARE, NYSTATIN CREAM ORDERED. B/P IN THE LOW SIDE WITH SYSTOLIC IN THE 80'S, HOSPITOLIST MADE AWARE, PLAN TO ORDER FLUID. PATIENT IS NPO. BED LOW AND LOCKED, BED ALARM IN PLACE. WILL CONTINUE TO MONITOR.
[2021-05-12] VITALS (155 sets, daily range): BP systolic 78–101; BP diastolic 30–48; PULSE 81–98; TEMP 97.1–98.7; O2SAT 75–97
[2021-05-12 06:47] LABS: MEAN CELL VOLUME 88 fl (80.0-100.0); MEAN CORPUSCULAR HGB CONC 30 g/dl (33.0-37.0); MEAN PLATELET VOLUME 9.4 fl (7.4-10.4); PLATELET COUNT 203 K/mm3 (130-400); RED BLOOD COUNT 3.64 M/mm3 (4.10-5.30); REDCELL DISTRIBUTION WIDTH-CV 21.2 % (11.5-14.5)
[2021-05-12 06:58] LABS: CALCIUM 8.6 mg/dL (8.4-10.2); CREATININE, serum 1.32 (0.52-1.25)
[2021-05-12 07:01] LABS: POTASSIUM 6.2 mmol/L (3.4-5.0)
[2021-05-12 07:07] LABS: HEMATOCRIT 32.1 % (37.0-47.0); HEMOGLOBIN 9.6 g/dl (12.5-16.0); MEAN CORPUSCULAR HEMOGLOBIN 26 pg (27.0-31.0)
[2021-05-12 07:44] LABS: BAND 47 % (0-10); LYMPHOCYTE 7 % (20.0-51.0); NEUTROPHILS 44 % (42.0-75.2); OVALOCYTES 1+; PLATELET ESTIMATE NORMAL (NORMAL)
[2021-05-12 07:45] LABS: ANISOCYTOSIS 2+; SCHISTOCYTES 1+
--- NOTE | 2021-05-12 09:30 | NUR ---
Patient alert and oriented, answers questions appropriately. See assessment. Abdomen soft, non distended, tender to LLQ/LUQ with palpation. +Flatus. Last bowel movement 7.5.21. Bowel sounds active x4 quads. Midline incision from previous surgery with edges well approximated, compa intact, no redness or drainage noted. Lap sites x2 to abdomen with edges well approximated, compa intact, no redness or drainage noted. BLE with 1+ edema noted. Groin area with deep red excoriation noted. Coccyx with Stage II pressure ulcer noted, mepilex in place. Patient moans frequently, states she is thirsty and that's the reason she moans. Patients speech is drawn out, per her norm. No c/o at this time.
[2021-05-12 10:30] LABS: CALCIUM 8.5 mg/dL (8.4-10.2); CREATININE, serum 1.4 (0.52-1.25)
[2021-05-12 10:35] LABS: POTASSIUM 6.2 mmol/L (3.4-5.0)
[2021-05-12 10:46] LABS: INR 1.3 (0.8-3.0); PROTHROMBIN TIME 14.6 SECONDS (9.7-12.8)
--- NOTE | 2021-05-12 11:16 | NUR ---
Account Installer attended clinical rounds with the team. The patient's DPOA-HC/sister Bella (Anna) was present. Prior to admission the patient was at [facility] for post acute rehab. Following rounds, ARTURO met with the patient and nAna to complete intake. The patient lives alone in [place]. The patient has canes, walker, and an electric w/c. The patient's PCP is Dr. Scanlon and patient receives medications from [facility]. The patient has advanced directives in the EMR. The plan is to return to SNF at [facility]. Anna inquired about keeping the room at [facility]. ARTURO informed Anna this SW would have to contact Qian with [facility]. ARTURO contacted [facility]. She reports they can keep the patient's room for $208 a day. Also since they are filling up quick lately they may not have a bed when the patient is ready for discharge. ARTURO contacted Anna regarding Qian's information. Anna reports they will not pay to keep the room and would like a referral resent to [facility] and new referral to [facility] as well just in case [facility] is full. Referrals sent. Awaiting screens. *Discharge disposition: SNF. [facility] or [facility]. Referrals sent. Awaiting screens*
[2021-05-12 12:20] LABS: CALCIUM 8.8 mg/dL (8.4-10.2); CREATININE, serum 1.54 (0.52-1.25)
[2021-05-12 12:22] LABS: POTASSIUM 6.2 mmol/L (3.4-5.0)
--- NOTE | 2021-05-12 13:06 | NUR ---
Patient reports elevated pain, request pain medication. Checked with primary nurse. Morphine given per orders & Zofran for complaints of nausea. Assisted with Picc insertion by holding patient hand during insertion. Patient tolerated well & pain & nausea was releived by medications.
[2021-05-12 14:30] LABS: CREATININE, serum 1.05 (0.52-1.25); POTASSIUM 4.3 mmol/L (3.4-5.0)
[2021-05-12 14:32] LABS: CALCIUM 5.7 mg/dL (8.4-10.2)
--- NOTE | 2021-05-12 15:45 | NUR ---
Patient to IR with IR staff via wheelchair at this time.
--- NOTE | 2021-05-12 17:36 | NUR ---
Vancomycin Initial Dosing Pharmacy Note Ordering provider: MD SHRUTHI Indication/duration: SEVERE SEPSIS LABS: WBC 27.9, SCr 1.1, CrCl ~30 Recommendation: VANCOMYCIN 17MG/KG Loading dose: 1.5 grams Maintenance dose: 1.25 grams every 24 HOURS Trough goal: 15-20 ug/mL
[2021-05-12 18:14] LABS: PERITONEAL FLUID RBC 6000 /mm3 (0-0)
--- NOTE | 2021-05-12 18:15 | NUR ---
Report called to KIKE Dawn, ICU.
--- NOTE | 2021-05-12 18:50 | NUR ---
Patient transfered to ICU2 via wheelchair.
[2021-05-13] VITALS (464 sets, daily range): BP systolic 93–114; BP diastolic 37–66; PULSE 79–98; TEMP 97.4–97.8; O2SAT 49–100
[2021-05-13 05:44] LABS: BASO % 0.2 % (0.0-2.0); GRAN % 87.7 % (42.2-75.2); LYMPH # 1.1 (1.2-3.4); MEAN CELL VOLUME 89 fl (80.0-100.0); MEAN CORPUSCULAR HGB CONC 30 g/dl (33.0-37.0); MEAN PLATELET VOLUME 9.4 fl (7.4-10.4); MONO # 1.3 (0.1-0.6); PLATELET COUNT 191 K/mm3 (130-400); RED BLOOD COUNT 2.98 M/mm3 (4.10-5.30); REDCELL DISTRIBUTION WIDTH-CV 21.8 % (11.5-14.5)
[2021-05-13 05:47] LABS: HEMATOCRIT 26.5 % (37.0-47.0); MEAN CORPUSCULAR HEMOGLOBIN 27 pg (27.0-31.0)
[2021-05-13 05:55] LABS: CALCIUM 8.1 mg/dL (8.4-10.2); CREATININE, serum 1.82 (0.52-1.25)
[2021-05-13 05:58] LABS: POTASSIUM 5.8 mmol/L (3.4-5.0)
[2021-05-13 07:59] LABS: ALBUMIN 2.2 gm/dL (3.5-5.0); BILIRUBIN,TOTAL 0.5 mg/dL (0.0-1.0); CALCIUM 7.5 mg/dL (8.4-10.2); CREATININE, serum 1.72 (0.52-1.25); POTASSIUM 5.5 mmol/L (3.4-5.0); TOTAL PROTEIN 5.2 gm/dL (6.4-8.2)
--- NOTE | 2021-05-13 13:07 | NUR ---
Henry from [facility] reports they can accept the patient for post acute rehab.
--- NOTE | 2021-05-13 15:17 | NUR ---
second worker and Mitchell, palliative care nurse met with patient to have a goals of care conversation. Patient was not able to communicate to be understood. Worker and Rommelk contacted patient's sister/durable power of automatic packer operator for health care, Anna Reed, and discussed plan of care and goals of care. Worker and Rommelk provided education on do not resuscitate. Anna then had discussions with her entire sibling set regarding full code status versus do not rescitation and ventilator support. Anna called worker and stated that she and siblings are in agreement for patient to be a DNR and that ventilator support was not desired. Worker contacted patient's nurse and advised of the above information.
--- NOTE | 2021-05-13 19:16 | NUR ---
PT report given to KIKE Harper.
[2021-05-14] VITALS (470 sets, daily range): BP systolic 11–136; BP diastolic 47–83; PULSE 64–98; TEMP 97.4–98.4; O2SAT 59–100
[2021-05-14 05:43] LABS: MEAN CELL VOLUME 90 fl (80.0-100.0); MEAN CORPUSCULAR HGB CONC 30 g/dl (33.0-37.0); MEAN PLATELET VOLUME 9.5 fl (7.4-10.4); PLATELET COUNT 209 K/mm3 (130-400); RED BLOOD COUNT 2.72 M/mm3 (4.10-5.30); REDCELL DISTRIBUTION WIDTH-CV 22.3 % (11.5-14.5)
[2021-05-14 05:45] LABS: HEMATOCRIT 24.6 % (37.0-47.0); HEMOGLOBIN 7.4 g/dl (12.5-16.0); MEAN CORPUSCULAR HEMOGLOBIN 27 pg (27.0-31.0)
[2021-05-14 05:53] LABS: CALCIUM 6.5 mg/dL (8.4-10.2); CREATININE, serum 1.44 (0.52-1.25); POTASSIUM 4.7 mmol/L (3.4-5.0)
[2021-05-14 06:02] LABS: BAND 11 % (0-10); LYMPHOCYTE 3 % (20.0-51.0); NEUTROPHILS 83 % (42.0-75.2)
[2021-05-14 06:03] LABS: ANISOCYTOSIS 3+; BURR CELLS 3+; HELMET CELLS 1+; HYPOCHROMIA 3+; PLATELET ESTIMATE NORMAL (NORMAL)
[2021-05-14 06:04] LABS: OVALOCYTES 2+; SCHISTOCYTES 2+
--- NOTE | 2021-05-14 08:19 | NUR ---
PT's SAVI Blanco given an update on patient and on over night events.
--- NOTE | 2021-05-14 16:05 | NUR ---
PT BACK FROM SURGERY. 7.[address] 19 AT THE TEETH ON THE VENTILATOR. OG IN LEFT NARE 59 AT THE NARE. ARTLINE IN LEFT RADIAL. PT PLACED ON MONITOR. VITALS OBTAINED. ASSESSMENT COMPLETED. NEW COLOSTOMY BAG NOTED IN RLQ. BOWEL SOUNDS ACTIVE IN ALL FOUR QUANDRANTS. PT IS SEDATED.
--- NOTE | 2021-05-14 16:25 | NUR ---
Mortuary here to shredder picker body and left at 1540.
--- NOTE | 2021-05-14 16:42 | NUR ---
PT ARRIVED FROM SURGERY INTUBATED. ETT TUBE PLACEMENT VARIFIED IN SURGICAL SUITE. PT STABLE AND SEDATED. MECHANICAL VENTILATION INITIATED IN ICE BY Amber
[2021-05-14 17:31] LABS: ARTERIAL BLD GAS O2 SATURATION 99.1 % (92-100); ARTERIAL BLD GAS TCO2 CT 14.1; ARTERIAL BLOOD GAS BASE EXCESS -11.6 (-2-2); ARTERIAL BLOOD GAS HCO3 13.3 meq/L (22-26); ARTERIAL BLOOD GAS PCO2 27.4 mmHg (35-45)
[2021-05-14 17:32] LABS: ARTERIAL BLOOD GAS PO2 148.7 mmHg (80-100)
--- NOTE | 2021-05-14 19:05 | NUR ---
PT REPORT GIVEN TO KIKE MATHIS. CARE RELINQUISHED AT THIS TIME.
[2021-05-14 19:50] LABS: ARTERIAL BLD GAS O2 SATURATION 97.1 % (92-100); ARTERIAL BLD GAS TCO2 CT 14.9; ARTERIAL BLOOD GAS BASE EXCESS -8.3 (-2-2); ARTERIAL BLOOD GAS HCO3 14.2 meq/L (22-26); ARTERIAL BLOOD GAS PO2 95.7 mmHg (80-100); ARTERIAL BLOOD GAS pH 7.43 (7.35-7.45)
[2021-05-14 19:51] LABS: ARTERIAL BLOOD GAS PCO2 21.9 mmHg (35-45)
[2021-05-14 21:44] LABS: BASO % 0.1 % (0.0-2.0); EOS % 0.1 % (0-4.0); GRAN # 12.7 (1.4-6.5); GRAN % 88.2 % (42.2-75.2); LYMPH # 0.9 (1.2-3.4); LYMPH % 6.4 % (20.0-51.0); MEAN CORPUSCULAR HGB CONC 32 g/dl (33.0-37.0); MEAN PLATELET VOLUME 8.7 fl (7.4-10.4); MONO # 0.6 (0.1-0.6); MONO % 4.4 % (1.7-9.3); PLATELET COUNT 192 K/mm3 (130-400); RED BLOOD COUNT 3.53 M/mm3 (4.10-5.30); REDCELL DISTRIBUTION WIDTH-CV 20.8 % (11.5-14.5)
[2021-05-14 21:45] LABS: HEMATOCRIT 29.9 % (37.0-47.0); HEMOGLOBIN 9.5 g/dl (12.5-16.0); MEAN CELL VOLUME 85 fl (80.0-100.0); MEAN CORPUSCULAR HEMOGLOBIN 27 pg (27.0-31.0)
[2021-05-14 21:52] LABS: INR 1.3 (0.8-3.0); PROTHROMBIN TIME 14.8 SECONDS (9.7-12.8)
[2021-05-14 21:59] LABS: CALCIUM 7.2 mg/dL (8.4-10.2); CREATININE, serum 1.52 (0.52-1.25); MAGNESIUM 1.8 mg/dL (1.6-2.3); POTASSIUM 5.1 mmol/L (3.4-5.0)
[2021-05-15] VITALS (529 sets, daily range): BP systolic 83–148; BP diastolic 36–60; PULSE 56–82; TEMP 97.6–98.7; O2SAT 77–100
[2021-05-15 04:01] LABS: ARTERIAL BLD GAS O2 SATURATION 96.2 % (92-100); ARTERIAL BLD GAS TCO2 CT 17.1; ARTERIAL BLOOD GAS BASE EXCESS -7.1 (-2-2); ARTERIAL BLOOD GAS HCO3 16.3 meq/L (22-26); ARTERIAL BLOOD GAS PCO2 27.1 mmHg (35-45)
[2021-05-15 05:00] LABS: BASO % 0.2 % (0.0-2.0); EOS % 0.1 % (0-4.0); GRAN # 10.2 (1.4-6.5); GRAN % 87.6 % (42.2-75.2); LYMPH # 0.7 (1.2-3.4); LYMPH % 5.9 % (20.0-51.0); MEAN CELL VOLUME 87 fl (80.0-100.0); MEAN CORPUSCULAR HGB CONC 31 g/dl (33.0-37.0); MEAN PLATELET VOLUME 9.6 fl (7.4-10.4); MONO # 0.7 (0.1-0.6); MONO % 5.9 % (1.7-9.3); PLATELET COUNT 175 K/mm3 (130-400); RED BLOOD COUNT 3.58 M/mm3 (4.10-5.30); REDCELL DISTRIBUTION WIDTH-CV 21.1 % (11.5-14.5)
[2021-05-15 05:04] LABS: HEMATOCRIT 31.3 % (37.0-47.0); HEMOGLOBIN 9.7 g/dl (12.5-16.0); MEAN CORPUSCULAR HEMOGLOBIN 27 pg (27.0-31.0)
[2021-05-15 05:11] LABS: CREATININE, serum 1.36 (0.52-1.25); POTASSIUM 4.6 mmol/L (3.4-5.0)
--- NOTE | 2021-05-15 06:17 | NUR ---
PT ON MINIMAL SEDATION. BP IS EXTREMELY LABILE. HAVE PAUSED SEDATION TO HELP INCREASE BP SEVERAL TIMES OVERNIGHT. PT WILL ATTEMPT TO SIT UP AND IS PURPOSEFUL REACHING FOR TUBE. RARELY TRACKED WITH EYES. DID NOT FOLLOW COMMANDS.
--- NOTE | 2021-05-15 07:00 | NUR ---
REPORT RECEIVED FROM KIKE MATHIS
--- NOTE | 2021-05-15 07:24 | NUR ---
PT BPS SOFT OVERNIGHT. TWO 500 ML BOLUSES GIVEN IN ATTEMPT TO RAISE BP. LEVO NEEDED TO GIVE PT ADEQUATE SEDATION. NEW SX SITE, CLEAN, DRY, INTACT. COLOSTOMY WITH MINIMAL SEROSANGUINOUS OUTPUT. AFEBRILE. GREAT URINE OUTPUT. K NOTED HIGH, PER KARL, NO INTERVENTION NEEDED. MINIMAL SEDATION REQUIRED. BLE, LEGS ELEVATED/SCDS APPLIED.
--- NOTE | 2021-05-15 10:31 | NUR ---
BROTHER AND SISTER HAVE BEEN UPDATED BY DR. RASMUSSEN AND MYSELF. PATIENT IS NOT READY TO HAVE WEANING TRIAL AT THIS TIME. WILL ATTEMPT TO WEAN OFF LEVOPHED TODAY. WILL ATTEMPT WEANING TRIAL TOMORROW MORNING.
[2021-05-15 10:32] LABS: ALBUMIN 1.8 gm/dL (3.5-5.0); BILIRUBIN,TOTAL 0.7 mg/dL (0.0-1.0); TOTAL PROTEIN 4.5 gm/dL (6.4-8.2)
[2021-05-15 10:37] LABS: MAGNESIUM 1.8 mg/dL (1.6-2.3)
[2021-05-15 10:44] LABS: PRE ALBUMIN 4.4 mg/dL (17.6-36.0)
--- NOTE | 2021-05-15 17:42 | NUR ---
WITH SEDATION VACATION, PATIENT OPENS EYES AND MOVES HEAD FROM PILLOW. SHE DOES NOT FOLLOW COMMNANDS OR TRACK ME WITH HER EYES. VS REMAIN WNL.
--- NOTE | 2021-05-15 18:56 | NUR ---
REPORT GIVEN TO KIKE DOS SANTOS
--- NOTE | 2021-05-15 20:47 | NUR ---
Patient awake and aggitated. Sedation increased. Levo titrated per parameters. Assessment complete.
[2021-05-16] VITALS (599 sets, daily range): BP systolic 97–137; BP diastolic 43–67; PULSE 55–63; TEMP 97.2–98.7; O2SAT 93–100
[2021-05-16 04:31] LABS: BASO % 0.1 % (0.0-2.0); EOS # 0.3 (0.0-0.7); EOS % 2.8 % (0-4.0); GRAN # 6.8 (1.4-6.5); GRAN % 69.5 % (42.2-75.2); LYMPH # 1.5 (1.2-3.4); LYMPH % 15.4 % (20.0-51.0); MEAN CELL VOLUME 83 fl (80.0-100.0); MEAN CORPUSCULAR HGB CONC 32 g/dl (33.0-37.0); MEAN PLATELET VOLUME 8.8 fl (7.4-10.4); MONO # 1.1 (0.1-0.6); MONO % 11.7 % (1.7-9.3); PLATELET COUNT 211 K/mm3 (130-400); RED BLOOD COUNT 3.48 M/mm3 (4.10-5.30); REDCELL DISTRIBUTION WIDTH-CV 21.4 % (11.5-14.5)
[2021-05-16 04:32] LABS: HEMATOCRIT 28.7 % (37.0-47.0); HEMOGLOBIN 9.3 g/dl (12.5-16.0); MEAN CORPUSCULAR HEMOGLOBIN 27 pg (27.0-31.0)
[2021-05-16 04:42] LABS: CALCIUM 7.1 mg/dL (8.4-10.2); CREATININE, serum 1.22 (0.52-1.25); PHOSPHOROUS 2.4 mg/dL (2.5-4.5); POTASSIUM 3.5 mmol/L (3.4-5.0)
[2021-05-16 05:01] LABS: ARTERIAL BLD GAS O2 SATURATION 97.1 % (92-100); ARTERIAL BLOOD GAS BASE EXCESS -1.4 (-2-2); ARTERIAL BLOOD GAS HCO3 19.3 meq/L (22-26); ARTERIAL BLOOD GAS PCO2 21.3 mmHg (35-45); ARTERIAL BLOOD GAS PO2 88.2 mmHg (80-100); ARTERIAL BLOOD GAS pH 7.58 (7.35-7.45)
--- NOTE | 2021-05-16 05:40 | NUR ---
KIKE SANTOS RECEIVED ORDER FROM [facility] PHYSICIAN TO LOWER VENT RATE FROM 22 TO 18. THIS RT MADE THIS CHANGE.
--- NOTE | 2021-05-16 06:06 | NUR ---
Sedation vacation/weaning trial complete. Patient unable to maintain breathing on own. Patient noted to not follow commands, rolling eyes, and pulling against restraints.
--- NOTE | 2021-05-16 07:02 | NUR ---
Report given to KIKE Alonzo
--- NOTE | 2021-05-16 09:15 | NUR ---
Dr. Watson here to see patient. She is on minimal sedation and does not wake very well. She opens eyes and only responds to some commands. Dr. Watson is given update about how her weaning trial went earlier this morning and he gives orders for vent setting changes and to do another weaning trial tomorrow morning.
--- NOTE | 2021-05-16 14:00 | NUR ---
Sister, Anna, updated at this time
[2021-05-16 14:06] LABS: ARTERIAL BLD GAS O2 SATURATION 97.7 % (92-100); ARTERIAL BLD GAS TCO2 CT 20.8; ARTERIAL BLOOD GAS BASE EXCESS -3.8 (-2-2); ARTERIAL BLOOD GAS HCO3 19.8 meq/L (22-26); ARTERIAL BLOOD GAS PCO2 31.6 mmHg (35-45); ARTERIAL BLOOD GAS PO2 107.6 mmHg (80-100); ARTERIAL BLOOD GAS pH 7.42 (7.35-7.45)
--- NOTE | 2021-05-16 19:32 | NUR ---
Report given to KIKE Allen
[2021-05-17] VITALS (409 sets, daily range): BP systolic 102–124; BP diastolic 39–49; PULSE 62–71; TEMP 97.4–98.6; O2SAT 85–100
[2021-05-17 04:47] LABS: ARTERIAL BLD GAS O2 SATURATION 97.8 % (92-100); ARTERIAL BLD GAS TCO2 CT 21.2; ARTERIAL BLOOD GAS BASE EXCESS -3.3 (-2-2); ARTERIAL BLOOD GAS HCO3 20.3 meq/L (22-26); ARTERIAL BLOOD GAS PCO2 30.9 mmHg (35-45); ARTERIAL BLOOD GAS PO2 109.4 mmHg (80-100); ARTERIAL BLOOD GAS pH 7.44 (7.35-7.45)
[2021-05-17 04:56] LABS: BASO % 0.2 % (0.0-2.0); EOS # 0.3 (0.0-0.7); EOS % 5.5 % (0-4.0); GRAN # 3.8 (1.4-6.5); GRAN % 64.4 % (42.2-75.2); LYMPH # 1.1 (1.2-3.4); LYMPH % 18.1 % (20.0-51.0); MEAN CORPUSCULAR HGB CONC 31 g/dl (33.0-37.0); MEAN PLATELET VOLUME 9.6 fl (7.4-10.4); MONO # 0.7 (0.1-0.6); MONO % 11.1 % (1.7-9.3); PLATELET COUNT 136 K/mm3 (130-400); REDCELL DISTRIBUTION WIDTH-CV 21.8 % (11.5-14.5)
[2021-05-17 04:57] LABS: HEMOGLOBIN 8.9 g/dl (12.5-16.0); MEAN CELL VOLUME 88 fl (80.0-100.0); MEAN CORPUSCULAR HEMOGLOBIN 27 pg (27.0-31.0)
[2021-05-17 05:12] LABS: CALCIUM 6.9 mg/dL (8.4-10.2); CREATININE, serum 1.08 (0.52-1.25); MAGNESIUM 2.2 mg/dL (1.6-2.3); PHOSPHOROUS 3.2 mg/dL (2.5-4.5); POTASSIUM 3.3 mmol/L (3.4-5.0)
--- NOTE | 2021-05-17 06:27 | NUR ---
YPAUSED SEDATION FOR BREATHING TRIAL THIS AM. PT TOOK SPONTANEOUS BREATHS BUT HAD LOW VT (100S). MAINTAINED SATS IN HIGH 90S FOR APPROX 10 MIN ON TRIAL EVENTUALLY SATS DROPPED TO 80S/ PRESSURE SUPPORT TURNED ON AND STARTED SEDATION AT LOWER RATE. PT DID NOT FOLLOW COMMANDS BUT WAS PURPOSEFUL REACHING FOR VENT AND MOVING EXTREMETIES.
--- NOTE | 2021-05-17 06:57 | NUR ---
SEE SEDATION VACATION NOTE. CALLED HOSPITALIST FOR SOFT BPS WITH A MAP BETWEEN 55-65. OK IF MAP >60. IF BP SUSTAINS < OR EQUAL TO 55 THEN LEVO NEEDS RESTARTED. PT PRESSURES RAISED INDEPENDENTLY OVERNIGHT. SEDATION ABLE TO BE LOWERED AND PT TOLERATES VENT SETTINGS WHILE PARTIALLY AWAKE.
[2021-05-18] VITALS (507 sets, daily range): BP systolic 111–132; BP diastolic 47–76; PULSE 65–98; TEMP 98–98.5; O2SAT 95–100
[2021-05-18 04:05] LABS: BASO % 0.3 % (0.0-2.0); EOS # 0.4 (0.0-0.7); EOS % 5.8 % (0-4.0); GRAN # 3.9 (1.4-6.5); GRAN % 60.4 % (42.2-75.2); LYMPH # 1.2 (1.2-3.4); LYMPH % 18.8 % (20.0-51.0); MEAN CELL VOLUME 88 fl (80.0-100.0); MEAN CORPUSCULAR HGB CONC 31 g/dl (33.0-37.0); MEAN PLATELET VOLUME 9.5 fl (7.4-10.4); MONO # 0.9 (0.1-0.6); MONO % 13.6 % (1.7-9.3); PLATELET COUNT 117 K/mm3 (130-400); RED BLOOD COUNT 3.48 M/mm3 (4.10-5.30); REDCELL DISTRIBUTION WIDTH-CV 21.6 % (11.5-14.5)
[2021-05-18 04:07] LABS: HEMATOCRIT 30.7 % (37.0-47.0); HEMOGLOBIN 9.4 g/dl (12.5-16.0); MEAN CORPUSCULAR HEMOGLOBIN 27 pg (27.0-31.0)
[2021-05-18 04:16] LABS: ALBUMIN 1.9 gm/dL (3.5-5.0); BILIRUBIN,TOTAL 0.6 mg/dL (0.0-1.0); INR 1.2 (0.8-3.0); MAGNESIUM 2.2 mg/dL (1.6-2.3); PHOSPHOROUS 3.7 mg/dL (2.5-4.5); POTASSIUM 3.7 mmol/L (3.4-5.0); PROTHROMBIN TIME 13.5 SECONDS (9.7-12.8); TOTAL PROTEIN 4.7 gm/dL (6.4-8.2)
[2021-05-18 04:30] LABS: PRE ALBUMIN 6.2 mg/dL (17.6-36.0)
[2021-05-18 04:36] LABS: ARTERIAL BLD GAS O2 SATURATION 96.6 % (92-100); ARTERIAL BLD GAS TCO2 CT 25.9; ARTERIAL BLOOD GAS BASE EXCESS 1.4 (-2-2); ARTERIAL BLOOD GAS HCO3 24.8 meq/L (22-26); ARTERIAL BLOOD GAS PCO2 34.9 mmHg (35-45); ARTERIAL BLOOD GAS PO2 83.2 mmHg (80-100); ARTERIAL BLOOD GAS pH 7.47 (7.35-7.45)
--- NOTE | 2021-05-18 07:00 | NUR ---
PT IS INTUBATED BUT ON CPAP TRIAL. SEDATION HAS BEEN OFF SINCE AROUND 0200. PT'S VSS. PT WILL INTERMITTENTLY COMMUNITY OUTREACH DIRECTOR BUT DOES NOT TRACK OR FOLLOW OTHER COMMANDS. WILL CONITNUE TO MONTIOR.
[2021-05-18 09:04] LABS: PARTIAL THROMBOPLASTIN TIME 89.8 SECONDS (26.0-37.0)
--- NOTE | 2021-05-18 10:30 | NUR ---
Spoke with regarding starting heparin drip for dvt. States ok with him to start. Head CT negative. notified. Will start heparin drip. Consult to called. Will continue to monitor.
--- NOTE | 2021-05-18 10:32 | NUR ---
TF increased from 15ml/hr to 35ml/hr. Will contineu to monitor residual and increase to goal as able.
--- NOTE | 2021-05-18 11:46 | NUR ---
SW sent updates to [facility] for review. SW will continue to follow.
--- NOTE | 2021-05-18 17:00 | NUR ---
PT HAS BEEN OFF ALL SEDATION SINCE 0200. PT INTERMITTENTLY ABLE TO FOLLOW COMMANDS AND MOVE ALL EXTREMETIES. HEAD CT NEGATIVE. NEURO CONSULT AND EEG ORDERED FOR TOMORROW.
[2021-05-19] VITALS (284 sets, daily range): BP systolic 92–97; BP diastolic 49–56; PULSE 95–126; TEMP 94–98.5; O2SAT 50–100
[2021-05-19 04:05] LABS: MEAN CELL VOLUME 91 fl (80.0-100.0); MEAN CORPUSCULAR HGB CONC 29 g/dl (33.0-37.0); MEAN PLATELET VOLUME 10.1 fl (7.4-10.4); PLATELET COUNT 181 K/mm3 (130-400); RED BLOOD COUNT 2.87 M/mm3 (4.10-5.30); REDCELL DISTRIBUTION WIDTH-CV 22.1 % (11.5-14.5)
[2021-05-19 04:14] LABS: HEMATOCRIT 26.2 % (37.0-47.0); HEMOGLOBIN 7.7 g/dl (12.5-16.0); MEAN CORPUSCULAR HEMOGLOBIN 27 pg (27.0-31.0)
[2021-05-19 04:20] LABS: CALCIUM 6.8 mg/dL (8.4-10.2); CREATININE, serum 1.28 (0.52-1.25); MAGNESIUM 2.3 mg/dL (1.6-2.3); PHOSPHOROUS 5.7 mg/dL (2.5-4.5); POTASSIUM 5.1 mmol/L (3.4-5.0)
[2021-05-19 04:28] LABS: ANISOCYTOSIS 3+; BAND 9 % (0-10); EOSINOPHIL 2 % (0-4); HYPOCHROMIA 3+; LYMPHOCYTE 6 % (20.0-51.0); METAMYELOCYTE 5 % (0-0); NEUTROPHILS 72 % (42.0-75.2); PLATELET ESTIMATE NORMAL (NORMAL); SCHISTOCYTES 1+
[2021-05-19 04:29] LABS: BURR CELLS 1+; OVALOCYTES 1+
[2021-05-19 05:42] LABS: ARTERIAL BLD GAS O2 SATURATION 97.7 % (92-100); ARTERIAL BLD GAS TCO2 CT 18.1; ARTERIAL BLOOD GAS BASE EXCESS -7.7 (-2-2); ARTERIAL BLOOD GAS HCO3 17.2 meq/L (22-26); ARTERIAL BLOOD GAS PCO2 31.5 mmHg (35-45); ARTERIAL BLOOD GAS PO2 109.9 mmHg (80-100); ARTERIAL BLOOD GAS pH 7.35 (7.35-7.45)
--- NOTE | 2021-05-19 07:30 | NUR ---
DR. RASMUSSEN NOTIFIED OF PATIENT'S CONDITION. VASOPRESSORS ON MAX DOSES. HEPARIN GTT STOPPED AND TUBE FEEDS STOPPED AT THIS TIME. DR. RASMUSSEN WILL BE HERE SHORTLY. DR. SINGH ALSO AWARE OF SITUATION.
--- NOTE | 2021-05-19 08:30 | NUR ---
SISTER, MATILDA, CALLS AT THIS TIME. UPDATE GIVEN AND SHE IS STRONGLY ENCOURAGED TO COME TO THE HOSPITAL SINCE THE PATIENT IS DOING SO POORLY. BP CONTINUES TO BE LOW AFTER BEING MAX'D ON THREE VASOPRESSORS AND IVF BOLUSES. SHE IS AWARE OF HOW CRITICAL THE SITUATION IS. SHE STATES THAT HER OTHER SIBLINGS ARE ON THEIR WAY WELL AND THEY WILL MOST LIKELY PROCEED WITH COMFORT MEASURES WHEN THEY ARE ALL PRESENT.
--- NOTE | 2021-05-19 09:01 | NUR ---
PT ABLE TO FOLLOW COMMANDS AND EXPRESS EMOTION THROUGOUT SHIFT. NODDED YES AND CRIED TO BEING IN PAIN SO FENT DRIP WAS RESTARTED. PT STILL TOLERATED SPONTANOUES BREATHING WELL WITH FENT DRIP ON AT 25 MCG/H AND NODDED "YES" THAT PAIN WAS RESOLVED WITH DRIP. UOP WAS LOW- HX OF RENAL ISSUES AND BEDROSE FOLLOWING. LASIX DC'D. VSS STABLE UNTIL NOTED LOW BP AT 0100 WHICH CONTINUED TO TREND DOWN RAPIDLY. PA ORDERED BOLUS AND JURGEN INITIALLY/ ATTEMPTED TO STIMULATE PT TO INCREASE PRESSURE. BOLUS HELPED BRIEFLY BUT JURGEN DRIP QUICKLY INCREASED TO MAX WITH LITTLE EFFECT. LEVO INITIATED AND HAD MINIMAL BUT SOME EFFECT ON BP. NOTED TACHYCARDIA INVERSELY CLIMBED WITH HYPOTENSION. 3 OTHER BOLUSES GIVEN TO ATTEMPT TO MAINTAIN BP. BG WITHIN ORDER LIMITS BUT NOTABLY HIGH. PT REMAINS AFEBRILE, NO VISIBLE BLEEDING ALTHOUGH APPEARS PALE. COLOSTOMY INTACY. STOMA IS RED AND MOIST WITH EDEMA NOTED ON STOMA. HOSPITALIST, DR SINGH, CALLED FOR UPDATE AND TO SEEK ADVICE. HOSPITALIST TO CALL FAMILY ALONG WITH NURSE TO UPDATE AND ORGANIZE FAMILY ADMISSION TO HOSPITAL TO SEE PT. UPDATED UPON ARRIVAL TO UNIT. DR. NOVOA UPDATED ON DECLINING PT CONDITION AND WILL COME TO BEDSIDE. DAY NURSE UPDATED OF EVENTS TO THIS POINT AND CARE RELINQUISHED AT THIS TIME.
--- NOTE | 2021-05-19 10:30 | NUR ---
DR. RASMUSSEN, FRANCISCO AND SOMMER ALL SPEAK TO THE FAMILY
--- NOTE | 2021-05-19 10:33 | NUR ---
Met with patient's older brother, Surjit, and his this morning. Pt has taken a rapidly worsening condition. Family was notified and all but one brother has arrived at bedside that is expected. Family met with Dr Duenas after talking with Dr Watson and Dr Esparza and they have requested extubation and comfort care after brother has had time to say goodbye after his arrival. Comfort quilt was provided and placed on pt's bed. Support has been provided. Family denies needs at this time.
--- NOTE | 2021-05-19 10:42 | NUR ---
Initial visit; Patient's family request prayer. Farm Crew Leader offered Prayer and the Psalm along with words of comfort for the family.
--- NOTE | 2021-05-19 11:27 | NUR ---
PATIENT GIVEN COMFORT CARE MEDICATIONS OF MORPHINE AND ATIVAN THEN COMPASSIONATE EXTUBATION FOR COMFORT CARE MEASURES AT 1109. PATIENT PASSESS AT 1116. CONFIRMED BY MYSELF AND KIKE GRIFFIN. PATIENT'S FAMILY IS AT THE BEDSIDE THE ENTIRE TIME. EMOTIONAL SUPPPORT GIVEN.
--- NOTE | 2021-05-19 11:27 | NUR ---
DR. SINGH NOTIFIED OF PATIENT'S PASSING SHORTLY AFTER SHE PASSED.
--- NOTE | 2021-05-19 11:35 | NUR ---
TOOL HONING MACHINE SET UP OPERATOR NOTIFIED OF PATIENT'S PASSING.
--- NOTE | 2021-05-19 11:43 | NUR ---
ARTURO informed during rounds that patient would be going to comfort care measures. Dr. Duenas spoke to family about patient's condition through last evening as well as current condition. Patient's DPOA sister Bella Newby wanted to wait for patient's other brother to arrive before taking patient off of any medications or tubing. Patient soon there after. DPOA provided they would like to obtain services from [facility]. ARTURO called home to notify. Nothing further.
--- NOTE | 2021-05-19 11:54 | NUR ---
PT EXTUBATED PALLIATIVELY WITH FAMILY IN THE ROOM.
--- NOTE | 2021-05-19 11:59 | NUR ---
Call placed to [facility]. Due to dx of Sepsis patient will not be a canidate for donation. Case # [id number]. Patient is ready for discharge. Call placed to [facility] for tack picker.
--- NOTE | 2021-05-19 12:15 | NUR ---
Courtesy call placed to Dr. Scanlon's office to make aware of patients .
--- NOTE | 2021-05-19 12:20 | NUR ---
All lines and tubes removed at this time. Right ileostomy device left in place.
--- NOTE | 2021-05-19 12:55 | NUR ---
Patient leaves with [facility] at this time.
== END 2021-05-19 13:22 | disposition expired | DRG 853 ==
LOC: COL.ER 18:27 → ICU 22:20 → SURG 22:20 → ICU 05-12 17:28
PROVIDERS: Emergency Medicine; Internal Medicine Gastroenterology; Internal Medicine Pulmonary Disease; Physician Assistant; Student in an Organized Health Care Education/Training Program; Surgery; ADMIT Internal Medicine
PROC: 02H633Z Insertion of Infusion Device into Right Atrium, Percutaneous Approach (ICD-10-PCS; 2021-05-12)
PROC: 0W9G3ZZ Drainage of Peritoneal Cavity, Percutaneous Approach (ICD-10-PCS; 2021-05-13)
PROC: 0D1B0Z4 Bypass Ileum to Cutaneous, Open Approach (ICD-10-PCS; principal; 2021-05-14 12:00)
PROC: 0DBB0ZZ Excision of Ileum, Open Approach (ICD-10-PCS; 2021-05-14 12:00)
PROC: 0BH17EZ Insertion of Endotracheal Airway into Trachea, Via Natural or Artificial Opening (ICD-10-PCS; 2021-05-15)
PROC: 5A1945Z Respiratory Ventilation, 24-96 Consecutive Hours (ICD-10-PCS; 2021-05-15)
DX: A41.9 Sepsis, unspecified organism (principal); G93.41 Metabolic encephalopathy; R65.21 Severe sepsis with septic shock; K65.2 Spontaneous bacterial peritonitis; J96.00 Acute respiratory failure, unspecified whether with hypoxia or hypercapnia; K91.89 Other postprocedural complications and disorders of digestive system; N39.0 Urinary tract infection, site not specified; E87.2 Acidosis; R18.8 Other ascites; C18.4 Malignant neoplasm of transverse colon; N17.9 Acute kidney failure, unspecified; E46 Unspecified protein-calorie malnutrition; Z51.5 Encounter for palliative care; Z66 Do not resuscitate; K55.20 Angiodysplasia of colon without hemorrhage; I10 Essential (primary) hypertension; E11.9 Type 2 diabetes mellitus without complications; E03.9 Hypothyroidism, unspecified; K74.60 Unspecified cirrhosis of liver; E87.8 Other disorders of electrolyte and fluid balance, not elsewhere classified; E87.5 Hyperkalemia; R53.81 Other malaise; D50.9 Iron deficiency anemia, unspecified; Z79.4 Long term (current) use of insulin; Z79.890 Hormone replacement therapy; Y83.2 Surgical operation with anastomosis, bypass or graft as the cause of abnormal reaction of the patient, or of later complication, without mention of misadventure at the time of the procedure
CPT/HCPCS: 99223-AI; 99233-AI; 99239; A4217; A4314; C1751; J0171; J0330; J0610; J0696; J1450; J1644; J1815; J1940; J2060; J2270; J2370; J2405; J2543; J2704; J3010; J3370; J3411; J3475; J3480; J7030; J7040; J7050; J7060; P9016; Q9967